=== PATIENT | female | born 1960 | race Native Hawaiian/Other Pacific Islander ===

== ENCOUNTER → 2016-11-07 | Outpatient (CLI) | payer OTHER ==
[2016-11-07 10:21] LABS: CH 29.8; CHCM 33.2; HCT 42.7 % (34.0-46.0); HDW 2.41; HGB 13.9 gm/dL (11.4-16.0); MCH 29.4 pg (25.0-35.0); MCHC 32.6 g/dL (31.0-37.0); MCV 90.3 fL (80.0-100.0); RBC 4.74 m/uL (3.80-5.40); RDW 12.9 % (11.5-15.5); WBC 6.7 k/uL (3.8-10.6)
[2016-11-07 10:48] LABS: ALT 40 U/L (9-52); AST 31 U/L (14-36); Alkaline Phosphatase 101 U/L (38-126); Anion Gap 10 mmol/L; Blood Urea Nitrogen 11 mg/dL (7-17); Calcium 9.6 mg/dL (8.4-10.2); Carbon Dioxide 28 mmol/L (22-30); Chloride 96 mmol/L (98-107); Cholesterol 137 mg/dL (<200); Glucose 244 mg/dL (74-99); HDL Cholesterol 39 mg/dL (40-60); Non-African American GFR(MDRD) >60 (>60 ml/min/1.73 sqM); Potassium 4.6 mmol/L (3.5-5.1); Sodium 134 mmol/L (137-145); Total Bilirubin 0.7 mg/dL (0.2-1.3); Total Protein 7.5 g/dL (6.3-8.2); Triglycerides 156 mg/dL (<150)
[2016-11-07 13:51] LABS: Hemoglobin A1C 11.4 % (4.2-6.1)
[2016-11-07 16:46] LABS: Urine Creatinine 102.3 mg/dL
== END | disposition home or self-care (01) ==
LOC: LABWHC1 09:52
PROVIDERS: ATTEND Internal Medicine
DX: I11.9 Hypertensive heart disease without heart failure (principal); E11.9 Type 2 diabetes mellitus without complications; E78.2 Mixed hyperlipidemia; E03.9 Hypothyroidism, unspecified
CPT/HCPCS: 36415; 80053; 80061; 82043; 82570; 83036; 84439; 84443; 85027

== ENCOUNTER 2017-02-12 07:43 | Emergency (ER) | payer OTHER ==
[2017-02-12 07:56] LABS: Glucose,Whole Blood 446 mg/dL (75-99)
[2017-02-12] MEDS ORDERED: ONDANSETRON 4 MG/2 ML VIAL IVP STA (08:05)
[2017-02-12] MEDS ORDERED: SODIUM CHLORIDE 0.9% 2,000 ML IV STA (08:05)
[2017-02-12 08:33] LABS: Appearance,Urine Clear (Clear); Bilirubin,Urine Negative (Negative); Glucose,Urine (UA) 4+ (Negative); Ketones,Urine Negative (Negative); Leukocyte Esterase,Urine Negative (Negative); Nitrite,Urine Negative (Negative); PH, Urine 5.5 (5.0-8.0); Protein,Urine Negative (Negative); Specific Gravity,Urine 1.024 (1.001-1.035); UA Billing (MACRO vs. MICRO) CHEM; Urobilinogen,Urine <2.0 mg/dL (<2.0)
[2017-02-12 08:41] LABS: VBG PH 7.42 (7.31-7.41)
[2017-02-12] MEDS ORDERED: PANTOPRAZOLE 40 MG/10 ML VIAL IVP STA (08:54)
--- NOTE | 2017-02-12 08:55 | ED ---
General Adult HPI - General Chief complaint: Nausea/Vomiting/Diarrhea Stated complaint: hyperglycemia Time Seen by Provider: 02/12/17 08:05 Source: patient, RN notes reviewed Mode of arrival: ambulatory Limitations: no limitations - History of Present Illness Initial comments: 56-year-old female presents emergency from she complaint of hyperglycemia, abdominal discomfort. Patient states that she's been having difficulty with her insulin because it causes her face to break out. Patient states when she was on Novolin she did not have these issues but states that the log is causing them. She states that she's been trying to deal with her doctor twice and minimal success with the medications. Patient states her blood sugars have been in the 500s over the last 1 week. Patient states that she has not about nausea, vomiting and diarrhea. Patient states that she has pain radiates from her epigastric region always to her anus. Patient states it's like a burning sensation. Patient had no prior GI disorders she's had colonoscopies in the past which showed no acute abnormality. Patient has fever, chills, chest pain or shortness of breath. - Related Data Home Medications Medication Instructions Recorded Confirmed Ibuprofen [Motrin] 800 mg PO Q8HR PRN 11/27/13 02/12/17 Losartan Potassium 100 mg PO DAILY 11/27/13 02/12/17 Levothyroxine Sodium [Synthroid] 25 mcg PO DAILY 06/30/15 02/12/17 Simvastatin [Zocor] 20 mg PO DAILY 02/12/17 02/12/17 oxyCODONE HCL/ACETAMINOPHEN 1 tab PO QID PRN 02/12/17 02/12/17 [Percocet 10-325 mg] Allergies Allergy/AdvReac Type Severity Reaction Status Date / Time venom-honey bee Allergy Severe Dyspnea Verified 02/12/17 08:50 [bee venom (honey bee)] venom-wasp [Wasp Venom] Allergy Severe Dyspnea Verified 02/12/17 08:50 MITA Inhibitors Allergy Unknown Dyspnea Verified 02/12/17 08:50 lactose Allergy Unknown Nausea & Verified 02/12/17 08:50 Vomiting tramadol Allergy Hallucinati Verified 02/12/17 08:50 ons seafood Allergy Unknown Rash/Hives Uncoded 02/12/17 07:51 Review of Systems ROS Statement: Those systems with pertinent positive or pertinent negative responses have been documented in the HPI. ROS Other: All systems not noted in ROS Statement are negative. Past Medical History Past Medical History: Diabetes Mellitus, GERD/Reflux, Hypertension Additional Past Medical History / Comment(s): HX OF DIVERTICULITIS,DEGENERATIVE JOINT DISEASE History of Any Multi-Drug Resistant Organisms: None Reported Past Surgical History: Section Additional Past Surgical History / Comment(s): X2,COLONOSCOPY X2,CHARLEY CARPAL TUNNEL,TRIGGER FINGER SURGERY X2. Past Anesthesia/Blood Transfusion Reactions: Previous Problems w/ Anesthesia, Motion Sickness Additional Past Anesthesia/Blood Transfusion Reaction / Comment(s): PT STATES SHE WAS COMATOSE FOR 5 DAYS AFTER . Past Psychological History: No Psychological Hx Reported Smoking Status: Never smoker Past Alcohol Use History: None Reported Past Drug Use History: None Reported - Past Family History Sister(s) Family Medical History: Cancer Additional Family Medical History / Comment(s): BREAST, UTERINE AND LYMPH NODES Brother(s) Family Medical History: Cancer Additional Family Medical History / Comment(s): BRAIN AND LUNG CA Daughter(s) Family Medical History: Cancer Additional Family Medical History / Comment(s): CERVICAL General Exam Limitations: no limitations General appearance: alert, in no apparent distress Head exam: Present: atraumatic, normocephalic, normal inspection Eye exam: Present: normal appearance, PERRL, EOMI. Absent: scleral icterus, conjunctival injection, periorbital swelling ENT exam: Present: normal exam, mucous membranes moist. Absent: normal oropharynx (Edentulous) Neck exam: Present: normal inspection. Absent: tenderness, meningismus, lymphadenopathy Respiratory exam: Present: normal lung sounds bilaterally. Absent: respiratory distress, wheezes, rales, rhonchi, stridor Cardiovascular Exam: Present: regular rate, normal rhythm, normal heart sounds. Absent: systolic murmur, diastolic murmur, rubs, gallop, clicks GI/Abdominal exam: Present: soft, tenderness (Mild epigastric), normal bowel sounds. Absent: distended, guarding, rebound, rigid Back exam: Absent: CVA tenderness (R), CVA tenderness (L) Skin exam: Present: warm, dry, intact, normal color, rash (Erythematous fine macular papular rash on the face) Course Vital Signs 02/12/17 02/12/17 07:46 10:04 Temperature 97.6 F Pulse Rate 79 78 Respiratory 18 19 Rate Blood Pressure 184/80 155/74 O2 Sat by Pulse 100 100 Oximetry Medical Decision Making - Medical Decision Making 56-year-old female presented emergency for hyperglycemia. Patient states she does feel improved time blood sugar has improved. CT does not show an acute abnormality. Patient will be discharged and advised follow-up with Dr. Mendez today or tomorrow morning to adjust her insulin. - Lab Data Result diagrams: 02/12/17 08:30 02/12/17 08:30 Lab Results 02/12/17 02/12/17 02/12/17 Range/Units 07:54 08:14 08:30 WBC (3.8-10.6) k/uL RBC (3.80-5.40) m/uL Hgb (11.4-16.0) gm/dL Hct (34.0-46.0) % MCV (80.0-100.0) fL MCH (25.0-35.0) pg MCHC (31.0-37.0) g/dL RDW (11.5-15.5) % Plt Count (150-450) k/uL Neutrophils % % Lymphocytes % % Monocytes % % Eosinophils % % Basophils % % Neutrophils # (1.3-7.7) k/uL Lymphocytes # (1.0-4.8) k/uL Monocytes # (0-1.0) k/uL Eosinophils # (0-0.7) k/uL Basophils # (0-0.2) k/uL VBG pH 7.42 H (7.31-7.41) VBG pCO2 38 (37-51) mmHg VBG HCO3 24 (24-28) mmol/L Sodium (137-145) mmol/L Potassium (3.5-5.1) mmol/L Chloride (98-107) mmol/L Carbon Dioxide (22-30) mmol/L Anion Gap mmol/L BUN (7-17) mg/dL Creatinine (0.52-1.04) mg/dL Est GFR (MDRD) Af Amer (>60 ml/min/1.73 sqM) Est GFR (MDRD) Non-Af (>60 ml/min/1.73 sqM) Glucose (74-99) mg/dL POC Glucose (mg/dL) 446 H (75-99) mg/dL POC Glu [employer] Petitpren, Bethany Calcium (8.4-10.2) mg/dL Total Bilirubin (0.2-1.3) mg/dL AST (14-36) U/L ALT (9-52) U/L Alkaline Phosphatase (38-126) U/L Total Protein (6.3-8.2) g/dL Albumin (3.5-5.0) g/dL Amylase (30-110) U/L Lipase (23-300) U/L Urine Color Light Yellow Urine Appearance Clear (Clear) Urine pH 5.5 (5.0-8.0) Ur Specific [place] 1.024 (1.001-1.035) Urine Protein Negative (Negative) Urine Glucose (UA) 4+ H (Negative) Urine Ketones Negative (Negative) Urine Blood Negative (Negative) Urine Nitrite Negative (Negative) Urine Bilirubin Negative (Negative) Urine Urobilinogen <2.0 (<2.0) mg/dL Ur Leukocyte Esterase Negative (Negative) Acetone, Qual (Negative) 02/12/17 02/12/17 02/12/17 Range/Units 08:30 08:30 10:19 WBC 7.1 (3.8-10.6) k/uL RBC 4.83 (3.80-5.40) m/uL Hgb 13.9 (11.4-16.0) gm/dL Hct 42.9 (34.0-46.0) % MCV 88.8 (80.0-100.0) fL MCH 28.8 (25.0-35.0) pg MCHC 32.4 (31.0-37.0) g/dL RDW 14.3 (11.5-15.5) % Plt Count 310 (150-450) k/uL Neutrophils % 71 % Lymphocytes % 21 % Monocytes % 5 % Eosinophils % 2 % Basophils % 1 % Neutrophils # 5.0 (1.3-7.7) k/uL Lymphocytes # 1.5 (1.0-4.8) k/uL Monocytes # 0.3 (0-1.0) k/uL Eosinophils # 0.1 (0-0.7) k/uL Basophils # 0.0 (0-0.2) k/uL VBG pH (7.31-7.41) VBG pCO2 (37-51) mmHg VBG HCO3 (24-28) mmol/L Sodium 138 (137-145) mmol/L Potassium 4.4 (3.5-5.1) mmol/L Chloride 103 (98-107) mmol/L Carbon Dioxide 22 (22-30) mmol/L Anion Gap 13 mmol/L BUN 11 (7-17) mg/dL Creatinine 0.67 (0.52-1.04) mg/dL Est GFR (MDRD) Af Amer >60 (>60 ml/min/1.73 sqM) Est GFR (MDRD) Non-Af >60 (>60 ml/min/1.73 sqM) Glucose 458 H* (74-99) mg/dL POC Glucose (mg/dL) 228 H (75-99) mg/dL POC Glu [employer] Nancy Castillo Calcium 9.5 (8.4-10.2) mg/dL Total Bilirubin 0.2 (0.2-1.3) mg/dL AST 23 (14-36) U/L ALT 39 (9-52) U/L Alkaline Phosphatase 117 (38-126) U/L Total Protein 7.7 (6.3-8.2) g/dL Albumin 3.9 (3.5-5.0) g/dL Amylase 73 (30-110) U/L Lipase 243 (23-300) U/L Urine Color Urine Appearance (Clear) Urine pH (5.0-8.0) Ur Specific [place] (1.001-1.035) Urine Protein (Negative) Urine Glucose (UA) (Negative) Urine Ketones (Negative) Urine Blood (Negative) Urine Nitrite (Negative) Urine Bilirubin (Negative) Urine Urobilinogen (<2.0) mg/dL Ur Leukocyte Esterase (Negative) Acetone, Qual Negative (Negative) Disposition Clinical Impression: Hyperglycemia, Abdominal pain Disposition: HOME SELF-CARE Condition: Stable Instructions: Abdominal Pain (ED) Additional Instructions: Please return to the Emergency Department if symptoms worsen or any other concerns. Follow-up with your PCP today or tomorrow to have your insulin adjusted. Referrals: Blair Mendez MD [Primary Care Provider] - 1-2 days Time of Disposition: 11:18
[2017-02-12] MEDS ORDERED: INSULIN REGULAR 100 UNIT/ML VIAL IV ONE (09:02)
[2017-02-12] MEDS ORDERED: diphenhydrAMINE 50 MG/ML 1 ML VIAL IVP STA (09:39)
[2017-02-12 09:51] LABS: Basophils % (A) 1 %; CH 29.9; CHCM 33.8; Eosinophils # (A) 0.1 k/uL (0-0.7); Eosinophils % (A) 2 %; HCT 42.9 % (34.0-46.0); HDW 2.37; HGB 13.9 gm/dL (11.4-16.0); Luc # (Auto) 0.11; Luc % (Auto) 2; Lymphocytes # (A) 1.5 k/uL (1.0-4.8); Lymphocytes % (A) 21 %; MCH 28.8 pg (25.0-35.0); MCHC 32.4 g/dL (31.0-37.0); MCV 88.8 fL (80.0-100.0); Mean Platelet Volume 7.6; Monocytes # (A) 0.3 k/uL (0-1.0); Monocytes % (A) 5 %; Neutrophils % (A) 71 %; RBC 4.83 m/uL (3.80-5.40); RDW 14.3 % (11.5-15.5); WBC 7.1 k/uL (3.8-10.6); WBC (Perox) 7.12
[2017-02-12 10:02] LABS: ALT 39 U/L (9-52); AST 23 U/L (14-36); Alkaline Phosphatase 117 U/L (38-126); Amylase 73 U/L (30-110); Anion Gap 13 mmol/L; Blood Urea Nitrogen 11 mg/dL (7-17); Calcium 9.5 mg/dL (8.4-10.2); Carbon Dioxide 22 mmol/L (22-30); Chloride 103 mmol/L (98-107); Non-African American GFR(MDRD) >60 (>60 ml/min/1.73 sqM); Potassium 4.4 mmol/L (3.5-5.1); Sodium 138 mmol/L (137-145); Total Bilirubin 0.2 mg/dL (0.2-1.3); Total Protein 7.7 g/dL (6.3-8.2)
[2017-02-12 10:13] LABS: Glucose 458 mg/dL (74-99)
[2017-02-12 10:20] LABS: Glucose,Whole Blood 228 mg/dL (75-99)
[2017-02-12] MEDS ORDERED: RX INFO: IV CONTRAST WAS GIVEN 1 EACH MISC MISCELLANE PRN (10:22)
--- NOTE | 2017-02-12 11:11 | CT ---
EXAMINATION TYPE: CT abdomen pelvis w con DATE OF EXAM: 02/12/2017 HISTORY: ab pain/ rectal pain CT DLP: 1943.10mGycm Automated Exposure Control for Dose Reduction was Utilized. CONTRAST: CT scan of the abdomen and pelvis is performed without oral but with IV Contrast, patient injected wi th 100 mL of Omnipaque 300. COMPARISON: None. FINDINGS: LUNG BASES: No significant abnormality is appreciated. LIVER/GB: No significant abnormality is appreciated. PANCREAS: No significant abnormality is seen. SPLEEN: No significant abnormality is seen. ADRENALS: No significant abnormality is seen. KIDNEYS: No significant abnormality is seen. BOWEL: No suspicious small or large bowel dilatation is present. Normal-appearing appendix is seen f rom cecum. There are some diverticula in the left and proximal sigmoid colon. There is no CT evidence for acute diverticulitis. Perianal fat appears within normal limits near axial image 83. UTERUS/ADNEXA: Few scattered pelvic phleboliths are seen. LYMPH NODES: No greater than 1cm abdominal or pelvic lymph nodes are appreciated. OSSEOUS STRUCTURES: There is moderate multilevel spurring throughout the visualized spine. Facet arth ropathy lower lumbar levels. OTHER: There is small fat-containing umbilical hernia IMPRESSION: No significant acute finding is seen to account for patient's clinical symptoms.
[2017-02-12 11:58] VITALS: BP 156/52; PULSE 777; RESP 20; TEMP 98.9
== END 2017-02-12 11:40 | disposition home or self-care (01) ==
LOC: EC 07:43
DX: E11.65 Type 2 diabetes mellitus with hyperglycemia (principal); R10.13 Epigastric pain; I10 Essential (primary) hypertension; Z88.5 Allergy status to narcotic agent; Z88.8 Allergy status to other drugs, medicaments and biological substances; Z91.011 Allergy to milk products; Z91.013 Allergy to seafood; Z91.030 Bee allergy status; Z79.4 Long term (current) use of insulin; Z79.899 Other long term (current) drug therapy
CPT/HCPCS: 99285; 96374; 96375 ×2; 96361; 36415; 80053; 82150; 82803; 82009; 83690; 85025; 81003; 74177; J1200; J2405; Q9967; C9113

== ENCOUNTER → 2017-08-20 | Outpatient (CLI) | payer OTHER ==
[2017-08-20 11:29] VITALS: BP 112/65; PULSE 68; RESP 18; TEMP 98.3; BMI 44.9
--- NOTE | 2017-08-20 12:22 | P.HPOB ---
History of Present Illness H&P Date: 08/20/17 Chief Complaint: The patient is here for her routine gynecologic exams and mammograms. This is a 57-year-old -Josiah. 2013. Patient is without gynecologic complaints. She denies any postmenopausal bleeding. She has occasional hot flashes. Review of Systems The patient has lost about 9 pounds over the last year. She denies respiratory or cardiac problems. G.I.: she has constipation which she attributes to her newly started insulin. Past Medical History Past Medical History: Diabetes Mellitus (Type II, requiring insulin.), GERD/ Reflux, Hypertension Additional Past Medical History / Comment(s): HX OF DIVERTICULITIS,DEGENERATIVE JOINT DISEASE. Arthritis. 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 She did undergo endometrial ablation 2013 for abnormal bleeding. Last liliana 2016 History of Any Multi-Drug Resistant Organisms: None Reported Past Surgical History: Ablation (Endometrial ablation in 2013), Section (Times 2), Orthopedic Surgery (Arthroscopic knee surgery) Additional Past Surgical History / Comment(s): X2,COLONOSCOPY X2 last one 2013.,CHARLEY CARPAL TUNNEL,TRIGGER FINGER SURGERY X2. Past Anesthesia/Blood Transfusion Reactions: Previous Problems w/ Anesthesia, Motion Sickness Additional Past Anesthesia/Blood Transfusion Reaction / Comment(s): PT STATES SHE WAS COMATOSE FOR 5 DAYS AFTER . 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 - Past Family History Sister(s) Family Medical History: Cancer Additional Family Medical History / Comment(s): BREAST, UTERINE AND LYMPH NODES Brother(s) Family Medical History: Cancer Additional Family Medical History / Comment(s): BRAIN AND LUNG CA Daughter(s) Family Medical History: Cancer Additional Family Medical History / Comment(s): CERVICAL Mother Family Medical History: Cancer, CVA/TIA, Diabetes Mellitus, Hyperlipidemia, Hypertension Additional Family Medical History / Comment(s): Bone cancer, mental disability Father Additional Family Medical History / Comment(s): Father was murdered at 42 yrs old Medications and Allergies Home Medications Medication Instructions Recorded Confirmed Type Losartan Potassium 100 mg PO DAILY 11/27/13 08/20/17 History Simvastatin [Zocor] 20 mg PO DAILY 02/12/17 08/20/17 History oxyCODONE HCL/ACETAMINOPHEN 1 tab PO QID PRN 02/12/17 08/20/17 History [Percocet 10-325 mg] Cholecalciferol (Vitamin D3) 2,000 unit PO 08/20/17 History [Vitamin D3] Insulin Glargine,Hum.rec.anlog 0 unit SQ HS 08/20/17 08/20/17 History [Basaglar Kwikpen U-100] Insulin Lispro [humaLOG Kwikpen] 100 unit SQ AC-BID 08/20/17 08/20/17 History Allergies Allergy/AdvReac Type Severity Reaction Status Date / Time venom-honey bee Allergy Severe Dyspnea Verified 08/20/17 11:47 [bee venom (honey bee)] venom-wasp [Wasp Venom] Allergy Severe Dyspnea Verified 08/20/17 11:47 MITA Inhibitors Allergy Unknown Dyspnea Verified 08/20/17 11:47 lactose Allergy Unknown Nausea & Verified 08/20/17 11:47 Vomiting tramadol Allergy Hallucinati Verified 08/20/17 11:47 ons seafood Allergy Unknown Rash/Hives Uncoded 08/20/17 11:47 Exam - Vital Signs Vital signs: Vital Signs Temp Pulse Resp BP 08/20/17 11:19 98.3 F 68 18 112/65 Intake and Output 08/19/17 08/20/17 08/20/17 22:59 06:59 14:59 Other: Weight 97.522 kg Height 4'10", BMI 44.9. This is a well-developed heavyset female who is alert and oriented times 3 in no acute distress. HEENT: Within normal limits. NECK: Supple without mass or thyromegaly. CHEST AND LUNGS: Clear to auscultation. HEART: Regular rate and rhythm. BREASTS: Are without mass or discharge. AXILLARY EXAM: Negative for adenopathy. BACK: Negative for CVA tenderness. ABDOMEN: Soft, obese, nontender, without palpable masses. PELVIC EXAM: Normal external genitalia with mild atrophy. Cervix and vagina appear normal with minimal atrophy. There is no unusual discharge. There is no evidence of prolapse. The uterus is midposition, nongravid size and nontender. There are no palpable adnexal masses or tenderness. Bimanual examination is somewhat limited secondary to her size. RECTAL EXAM: rectovaginal exam is negative for mass or tenderness and is negative for occult blood. EXTREMITIES: Nontender. IMPRESSION: 1. 57 year old menopausal female with normal gynecologic exam. 2. Previous Pap smear on 03/27/2016 showed ascus and was negative for high- risk HPV. 3. Family history of gynecologic cancer in a sister. This may have been uterine or ovarian. PLAN: 1. Pap smear was performed. 2. Self breast examination was discussed. 3. Screening mammogram will be done today. 4. Osteoporosis prevention was discussed. 5. She will return in one year.
--- NOTE | 2017-08-22 09:02 | MM ---
Reason for exam: screening (asymptomatic). Last mammogram was performed 1 year and 5 months ago. History: Family history of breast cancer in sister at age 48. Physical Findings: A clinical breast exam by your physician is recommended on an annual basis and results should be correlated with mammographic findings. MG Screening Mammo w CAD Bilateral CC, MLO, and XCCL view(s) were taken. Prior study comparison: March 27, 2016, bilateral MG screening mammo w CAD. December 01, 2014, bilateral MG screening mammo w CAD. The breast tissue is almost entirely fat. No significant changes when compared with prior studies. ASSESSMENT: Benign, BI-RAD 2 RECOMMENDATION: Routine screening mammogram of both breasts in 1 year.
== END | disposition home or self-care (01) ==
LOC: WWCWWP 11:14
PROVIDERS: ATTEND Obstetrics & Gynecology
DX: Z12.31 Encounter for screening mammogram for malignant neoplasm of breast (principal)
CPT/HCPCS: 77067

== ENCOUNTER 2017-09-08 02:38 | Emergency (ER) | payer OTHER ==
[2017-09-08 02:47] VITALS: PULSE 109
[2017-09-08] MEDS ORDERED: SODIUM CHLORIDE 0.9% 1,000 ML IV ONE (03:51)
[2017-09-08] MEDS ORDERED: ONDANSETRON 4 MG/2 ML VIAL IVP STA (03:52)
[2017-09-08] MEDS ORDERED: MORPHINE SULFATE 4MG/4ML SYRG IVP ONE (03:53)
[2017-09-08] MEDS ORDERED: SODIUM CHLORIDE 0.9% 1,000 ML IV SCH (04:00)
[2017-09-08 04:06] LABS: Basophils % (A) 0 %; Eosinophils # (A) 0.2 k/uL (0-0.7); Eosinophils % (A) 2 %; HCT 42.9 % (34.0-46.0); Lymphocytes # (A) 0.8 k/uL (1.0-4.8); Lymphocytes % (A) 9 %; MCH 28.3 pg (25.0-35.0); MCHC 32.7 g/dL (31.0-37.0); MCV 86.6 fL (80.0-100.0); Mean Platelet Volume 7.2; Monocytes # (A) 0.3 k/uL (0-1.0); Monocytes % (A) 3 %; Neutrophils # (A) 7.5 k/uL (1.3-7.7); Neutrophils % (A) 84 %; Platelet Count 281 k/uL (150-450); RBC 4.96 m/uL (3.80-5.40); WBC 8.9 k/uL (3.8-10.6)
[2017-09-08 04:07] LABS: Appearance,Urine Clear (Clear); Bilirubin,Urine Negative (Negative); Blood,Urine Negative (Negative); Color,Urine Yellow; Glucose,Urine (UA) Negative (Negative); Ketones,Urine Negative (Negative); Leukocyte Esterase,Urine Negative (Negative); Nitrite,Urine Negative (Negative); PH, Urine 6.5 (5.0-8.0); Protein,Urine Negative (Negative); Specific Gravity,Urine 1.013 (1.001-1.035); Urobilinogen,Urine <2.0 mg/dL (<2.0)
[2017-09-08 04:15] LABS: ALT 30 U/L (9-52); AST 33 U/L (14-36); Albumin 4.2 g/dL (3.5-5.0); Alkaline Phosphatase 79 U/L (38-126); Amylase 76 U/L (30-110); Anion Gap 16 mmol/L; Blood Urea Nitrogen 11 mg/dL (7-17); Calcium 9.7 mg/dL (8.4-10.2); Carbon Dioxide 23 mmol/L (22-30); Chloride 99 mmol/L (98-107); Glucose 146 mg/dL (74-99); Lipase 50 U/L (23-300); Potassium 4.4 mmol/L (3.5-5.1); Sodium 138 mmol/L (137-145); Total Bilirubin 0.6 mg/dL (0.2-1.3); Total Protein 7.6 g/dL (6.3-8.2)
[2017-09-08 04:21] LABS: D-Dimer 0.59 mg/L FEU (<0.60); Partial Thromboplastin Time 23.3 sec (22.0-30.0); Prothrombin Time 10.1 sec (9.0-12.0)
[2017-09-08 04:28] LABS: Creatine Kinase 57 U/L (30-135)
[2017-09-08 04:41] LABS: Creatine Kinase MB <0.2 ng/mL (0.0-2.4); Troponin I <0.012 ng/mL (0.000-0.034)
--- NOTE | 2017-09-08 04:47 | ED ---
Nausea/Vomiting/Diarrhea HPI <Gallo Oliva - Last Filed: 09/08/17 07:09> - General Source: patient, RN notes reviewed, old records reviewed Mode of arrival: wheelchair Limitations: no limitations <Sheree Burdenily - Last Filed: 09/08/17 14:52> - General Chief complaint: Nausea/Vomiting/Diarrhea Stated complaint: Nausea Time Seen by Provider: 09/08/17 02:53 - History of Present Illness Initial comments: Patient is a 57-year-old female present emergency Department chief complaint of vomiting and abdominal pain. 4:30 this afternoon. Patient states she's also some urinary frequency. She states the pain occasionally will radiate up towards her chest. Patient states that she's been treated for rosacea with Flagyl. She also was recently started on metformin. She complains of diarrhea.Patient denies any recent fever, chills, shortness of breath, chest pain, back pain, abdominal pain, nausea vomiting, numbness or tingling, dysuria or hematuria, constipation or diarrhea, headaches or visual changes, or any other current symptoms (Lian Burden) - Related Data Home Medications Medication Instructions Recorded Confirmed Losartan Potassium 100 mg PO DAILY 11/27/13 08/20/17 Simvastatin [Zocor] 20 mg PO DAILY 02/12/17 08/20/17 oxyCODONE HCL/ACETAMINOPHEN 1 tab PO QID PRN 02/12/17 08/20/17 [Percocet 10-325 mg] Cholecalciferol (Vitamin D3) 2,000 unit PO 08/20/17 [Vitamin D3] Insulin Glargine,Hum.rec.anlog 0 unit SQ HS 08/20/17 08/20/17 [Basaglar Kwikpen U-100] Insulin Lispro [humaLOG Kwikpen] 100 unit SQ AC-BID 08/20/17 08/20/17 Previous Rx's Medication Instructions Recorded Dicyclomine [Bentyl] 20 mg PO QID #15 tablet 09/08/17 Allergies Allergy/AdvReac Type Severity Reaction Status Date / Time venom-honey bee Allergy Severe Dyspnea Verified 08/20/17 11:47 [bee venom (honey bee)] venom-wasp [Wasp Venom] Allergy Severe Dyspnea Verified 08/20/17 11:47 MITA Inhibitors Allergy Unknown Dyspnea Verified 08/20/17 11:47 lactose Allergy Unknown Nausea & Verified 08/20/17 11:47 Vomiting tramadol Allergy Hallucinati Verified 08/20/17 11:47 ons seafood Allergy Unknown Rash/Hives Uncoded 08/20/17 11:47 Review of Systems ROS Other: All systems not noted in ROS Statement are negative. <Gallo Oliva - Last Filed: 09/08/17 07:09> ROS Other: All systems not noted in ROS Statement are negative. <Lian Burden - Last Filed: 09/08/17 14:52> ROS Statement: Those systems with pertinent positive or pertinent negative responses have been documented in the HPI. Past Medical History Past Medical History: Diabetes Mellitus, GERD/Reflux, Hypertension Additional Past Medical History / Comment(s): HX OF DIVERTICULITIS,DEGENERATIVE JOINT DISEASE. Arthritis. She did undergo endometrial ablation 2013 for abnormal bleeding History of Any Multi-Drug Resistant Organisms: None Reported Past Surgical History: Ablation, Section, Orthopedic Surgery Additional Past Surgical History / Comment(s): X2,COLONOSCOPY X2 last one 2013.,CHARLEY CARPAL TUNNEL,TRIGGER FINGER SURGERY X2. Past Anesthesia/Blood Transfusion Reactions: Previous Problems w/ Anesthesia, Motion Sickness Additional Past Anesthesia/Blood Transfusion Reaction / Comment(s): PT STATES SHE WAS COMATOSE FOR 5 DAYS AFTER . Past Psychological History: No Psychological Hx Reported Smoking Status: Never smoker Past Alcohol Use History: None Reported Past Drug Use History: None Reported - Past Family History Sister(s) Family Medical History: Cancer Additional Family Medical History / Comment(s): BREAST, UTERINE AND LYMPH NODES Brother(s) Family Medical History: Cancer Additional Family Medical History / Comment(s): BRAIN AND LUNG CA Daughter(s) Family Medical History: Cancer Additional Family Medical History / Comment(s): CERVICAL Mother Family Medical History: Cancer, CVA/TIA, Diabetes Mellitus, Hyperlipidemia, Hypertension Additional Family Medical History / Comment(s): Bone cancer, mental disability Father Additional Family Medical History / Comment(s): Father was murdered at 42 yrs old <Lian Burden - Last Filed: 09/08/17 14:52> General Exam Limitations: no limitations General appearance: alert, in no apparent distress Head exam: Present: atraumatic, normocephalic, normal inspection Eye exam: Present: normal appearance, PERRL, EOMI. Absent: scleral icterus, conjunctival injection, periorbital swelling ENT exam: Present: normal exam, mucous membranes moist Neck exam: Present: normal inspection. Absent: tenderness, meningismus, lymphadenopathy Respiratory exam: Present: normal lung sounds bilaterally. Absent: respiratory distress, wheezes, rales, rhonchi, stridor Cardiovascular Exam: Present: regular rate, normal rhythm, normal heart sounds. Absent: systolic murmur, diastolic murmur, rubs, gallop, clicks GI/Abdominal exam: Present: soft, tenderness (LLQ pain), normal bowel sounds. Absent: distended, guarding, rebound, rigid Extremities exam: Present: normal inspection, full ROM, normal capillary refill. Absent: tenderness, pedal edema, joint swelling, calf tenderness Back exam: Present: normal inspection Neurological exam: Present: alert, oriented X3, CN II-XII intact Psychiatric exam: Present: normal affect, normal mood Skin exam: Present: warm, dry, intact, normal color. Absent: rash <Lian Burden - Last Filed: 09/08/17 14:52> Vital Signs 09/08/17 09/08/17 02:41 07:03 Temperature 99.2 F 99.3 F Pulse Rate 109 H 109 H Respiratory 18 20 Rate Blood Pressure 131/71 143/78 O2 Sat by Pulse 99 96 Oximetry Medical Decision Making - Lab Data Result diagrams: 09/08/17 03:35 09/08/17 03:35 <Gallo Oliva - Last Filed: 09/08/17 07:09> - Lab Data Result diagrams: 09/08/17 03:35 09/08/17 03:35 - Radiology Data Radiology results: report reviewed <Lian Burden - Last Filed: 09/08/17 14:52> - Medical Decision Making 57 year old female, with nausea, diarrhea, and abdominal pain for one day. She also complains of chest pain for one week. She was given IV fluids labs obtained , labs were reviewed adn un remarkable. Patient has LLQ tenderness, continues to be tender on exam. CT preformed. Patient will be discharged from Dr. Oliva, althea CT results. Patient case address Dr. Jauregui 5:39 AM. (Lian Burden) - Lab Data Lab Results 09/08/17 09/08/1718 Range/Units 03:35 03:35 03:35 WBC 8.9 (3.8-10.6) k/uL RBC 4.96 (3.80-5.40) m/uL Hgb 14.0 (11.4-16.0) gm/dL Hct 42.9 (34.0-46.0) % MCV 86.6 (80.0-100.0) fL MCH 28.3 (25.0-35.0) pg MCHC 32.7 (31.0-37.0) g/dL RDW 13.0 (11.5-15.5) % Plt Count 281 (150-450) k/uL Neutrophils % 84 % Lymphocytes % 9 % Monocytes % 3 % Eosinophils % 2 % Basophils % 0 % Neutrophils # 7.5 (1.3-7.7) k/uL Lymphocytes # 0.8 L (1.0-4.8) k/uL Monocytes # 0.3 (0-1.0) k/uL Eosinophils # 0.2 (0-0.7) k/uL Basophils # 0.0 (0-0.2) k/uL PT (9.0-12.0) sec INR (<1.2) APTT (22.0-30.0) sec D-Dimer (<0.60) mg/L FEU Sodium 138 (137-145) mmol/L Potassium 4.4 (3.5-5.1) mmol/L Chloride 99 (98-107) mmol/L Carbon Dioxide 23 (22-30) mmol/L Anion Gap 16 mmol/L BUN 11 (7-17) mg/dL Creatinine 0.70 (0.52-1.04) mg/dL Est GFR (CKD-EPI)AfAm >90 (>60 ml/min/1.73 sqM) Est GFR (CKD-EPI)NonAf >90 (>60 ml/min/1.73 sqM) Glucose 146 H (74-99) mg/dL Calcium 9.7 (8.4-10.2) mg/dL Total Bilirubin 0.6 (0.2-1.3) mg/dL AST 33 (14-36) U/L ALT 30 (9-52) U/L Alkaline Phosphatase 79 (38-126) U/L Total Creatine Kinase 57 (30-135) U/L CK-MB (CK-2) <0.2 (0.0-2.4) ng/mL CK-MB (CK-2) Rel Index Troponin I <0.012 (0.000-0.034) ng/mL Total Protein 7.6 (6.3-8.2) g/dL Albumin 4.2 (3.5-5.0) g/dL Amylase 76 (30-110) U/L Lipase 50 (23-300) U/L Urine Color Urine Appearance (Clear) Urine pH (5.0-8.0) Ur Specific [place] (1.001-1.035) Urine Protein (Negative) Urine Glucose (UA) (Negative) Urine Ketones (Negative) Urine Blood (Negative) Urine Nitrite (Negative) Urine Bilirubin (Negative) Urine Urobilinogen (<2.0) mg/dL Ur Leukocyte Esterase (Negative) 09/08/17 09/08/17 Range/Units 03:35 03:35 WBC (3.8-10.6) k/uL RBC (3.80-5.40) m/uL Hgb (11.4-16.0) gm/dL Hct (34.0-46.0) % MCV (80.0-100.0) fL MCH (25.0-35.0) pg MCHC (31.0-37.0) g/dL RDW (11.5-15.5) % Plt Count (150-450) k/uL Neutrophils % % Lymphocytes % % Monocytes % % Eosinophils % % Basophils % % Neutrophils # (1.3-7.7) k/uL Lymphocytes # (1.0-4.8) k/uL Monocytes # (0-1.0) k/uL Eosinophils # (0-0.7) k/uL Basophils # (0-0.2) k/uL PT 10.1 (9.0-12.0) sec INR 1.0 (<1.2) APTT 23.3 (22.0-30.0) sec D-Dimer 0.59 (<0.60) mg/L FEU Sodium (137-145) mmol/L Potassium (3.5-5.1) mmol/L Chloride (98-107) mmol/L Carbon Dioxide (22-30) mmol/L Anion Gap mmol/L BUN (7-17) mg/dL Creatinine (0.52-1.04) mg/dL Est GFR (CKD-EPI)AfAm (>60 ml/min/1.73 sqM) Est GFR (CKD-EPI)NonAf (>60 ml/min/1.73 sqM) Glucose (74-99) mg/dL Calcium (8.4-10.2) mg/dL Total Bilirubin (0.2-1.3) mg/dL AST (14-36) U/L ALT (9-52) U/L Alkaline Phosphatase (38-126) U/L Total Creatine Kinase (30-135) U/L CK-MB (CK-2) (0.0-2.4) ng/mL CK-MB (CK-2) Rel Index Troponin I (0.000-0.034) ng/mL Total Protein (6.3-8.2) g/dL Albumin (3.5-5.0) g/dL Amylase (30-110) U/L Lipase (23-300) U/L Urine Color Yellow Urine Appearance Clear (Clear) Urine pH 6.5 (5.0-8.0) Ur Specific [place] 1.013 (1.001-1.035) Urine Protein Negative (Negative) Urine Glucose (UA) Negative (Negative) Urine Ketones Negative (Negative) Urine Blood Negative (Negative) Urine Nitrite Negative (Negative) Urine Bilirubin Negative (Negative) Urine Urobilinogen <2.0 (<2.0) mg/dL Ur Leukocyte Esterase Negative (Negative) 09/08/17 04:46 EKG shows recession cannot rule out anterior infarct. Age-indeterminate. Ventricular rate of 95 bpm. NM interval 150 ms. QRS duration 76 ms. QT QTc is 07/24/1939/437. (Lian Burden) - Radiology Data CT shows evidence of umbilical hernia, degenerative changes in spine. No acute inflammatory process. CXR was reivewed and normal. (Lian Burden) Disposition <Gallo Oliva - Last Filed: 09/08/17 07:09> Is patient prescribed a controlled substance at d/c from ED?: No If prescribed controlled substance>3 days was MAPS reviewed?: No When asked, does pt state using other controlled substances?: No <Lian Burden - Last Filed: 09/08/17 14:52> Clinical Impression: Abdominal pain Disposition: HOME SELF-CARE Condition: Good Instructions: Abdominal Pain (ED) Prescriptions: Dicyclomine [Bentyl] 20 mg PO QID #15 tablet Referrals: Blair Mendez MD [Primary Care Provider] - 1-2 days
--- NOTE | 2017-09-08 05:18 | XR ---
EXAM: XR Chest, 2 Views CLINICAL HISTORY: Pain TECHNIQUE: Frontal and lateral views of the chest. COMPARISON: 05/16/16 FINDINGS: Lungs: Unremarkable. No consolidation. Pleural space: Unremarkable. No pneumothorax. Heart: Unremarkable. No cardiomegaly. Mediastinum: Unremarkable. Bones/joints: Unremarkable. IMPRESSION: Unremarkable 2 views of the chest, no significant change from the prior study
[2017-09-08] MEDS ORDERED: RX INFO: IV CONTRAST WAS GIVEN 1 EACH MISC MISCELLANE PRN ×2 (05:22→05:48)
--- NOTE | 2017-09-08 05:22 | XR ---
EXAM: XR Abdomen, 1 View CLINICAL HISTORY: Pain TECHNIQUE: Frontal supine view of the abdomen/pelvis. COMPARISON: May 25, 2014 FINDINGS: Gastrointestinal tract: Unremarkable. No dilation. Bones/joints: Unremarkable. Multiple phleboliths are noted in the pelvis. IMPRESSION: Unremarkable single view the abdomen. No significant change compared to prior study
--- NOTE | 2017-09-08 06:57 | CT ---
EXAMINATION TYPE: CT abdomen and pelvis wo con DATE OF EXAM: 09/08/2017 COMPARISON: Previous study dated 02/12/2017 HISTORY: Left-sided abdominal pain CT DLP: 1765.30 mGycm Automated exposure control for dose reduction was used. TECHNIQUE: Helical acquisition of images was performed through the abdomen and pelvis was obtained w ithout intravenous or oral contrast.. FINDINGS: Visualized portions of the lungs are clear. There is no pleural or pericardial fluid. The h eart is not enlarged. Within the abdomen, there is elevation of the right hemidiaphragm. The liver, spleen and gallbladder appear normal. Both adrenal glands appear normal. There is no evidence of hydronephrosis or nephrolithiasis. The pancreas appears unremarkable. There is no significant retroperitoneal adenopathy. The bladder is unremarkable. The uterus is unremarkable. The ovaries are not visualized with certainty. There is no significant diverticular change and there is no radiographic evidence of diverticulitis. The appendix is normal. Small bowel loops are normal. There is no free fluid and no free air. There is a periumbilical hernia containing fat only. The mouth measures 2.9 cm. There is degenerative disc disease, facet arthropathy and hypertrophic spondylosis within the spine. IMPRESSION: 1. NO ACUTE INFLAMMATORY CHANGE. 2. PERIUMBILICAL HERNIA CONTAINING FAT ONLY WITH A MOUTH MEASURING 2.9 CM. 3. DEGENERATIVE CHANGES WITHIN THE SPINE.
[2017-09-08 07:06] VITALS: BP 143/78; RESP 20; TEMP 99.3
== END 2017-09-08 07:30 | disposition home or self-care (01) ==
LOC: EC 02:38 → SUPCPDRO 02:38 → EC 07:30
DX: R10.32 Left lower quadrant pain (principal); R07.9 Chest pain, unspecified; R11.2 Nausea with vomiting, unspecified; R19.7 Diarrhea, unspecified; R35.0 Frequency of micturition; E11.9 Type 2 diabetes mellitus without complications; I10 Essential (primary) hypertension; K21.9 Gastro-esophageal reflux disease without esophagitis; Z79.899 Other long term (current) drug therapy; Z79.4 Long term (current) use of insulin; Z91.030 Bee allergy status; Z88.8 Allergy status to other drugs, medicaments and biological substances; Z88.6 Allergy status to analgesic agent; Z91.011 Allergy to milk products; Z91.038 Other insect allergy status; Z91.013 Allergy to seafood
CPT/HCPCS: 36415; 93005; 85379; 80053; 82150; 82550; 82553; 83690; 84484; 85025; 85610; 85730; 81003; 71046; 74018; 74150; 99285; 96374; 96375; 96361 ×3; J2405; J2270

== ENCOUNTER 2019-01-11 14:02 | Emergency (ER) | payer OTHER ==
[2019-01-11 14:21] VITALS: BP 169/95; PULSE 95; RESP 16; TEMP 98
--- NOTE | 2019-01-11 15:51 | XR ---
EXAMINATION TYPE: XR Hip RT and AP Pelvis DATE OF EXAM: 01/11/2019 COMPARISON: 03/22/2012 HISTORY: Pain TECHNIQUE: A single AP view of the pelvis is obtained. Two views of the right hip are obtained. FINDINGS: The pelvic ring is intact. Sacroiliac joints appear intact. Proximal right femur and hip taj int appear intact. There is no sign of hip dysplasia. IMPRESSION: No acute abnormality of the pelvis and right hip. No change.
--- NOTE | 2019-01-11 15:59 | ED ---
General Adult HPI - General Chief complaint: Abdominal Pain Stated complaint: Right Hip Pain Time Seen by Provider: 01/11/19 14:24 Source: patient, RN notes reviewed, old records reviewed Mode of arrival: wheelchair Limitations: no limitations - History of Present Illness Initial comments: 58 year old female patient, no pertinent past medical history presents ED chief complaint of right hip pain. Patient reports that approximately one month ago she strained her right groin region. Patient states that this was improving. Patient states that today when she was in bed she rolled over and felt a pop in the anterior aspect of her right groin/hip region. Patient reports this is currently causing her pain. Patient reports that she is still ambulatory. Patient denies any other complaints at this time. Systemic: Pt denies fatigue, fever/chills, rash. Pt denies weakness, night sweats, weight loss. Neuro: Pt denies headache, visual disturbances, syncope or pre-syncope. HEENT: Pt denies ocular discharge or irritation, otalgia, rhinorrhea, pharyngitis or notable lymphadenopathy. Cardiopulmonary: Pt denies chest pain, SOB, heart palpitations, dyspnea on exertion. Abdominal/GI: Pt denies abdominal pain, n/v/d. : Pt denies dysuria, burning w/ urination, frequency/urgency. Denies new onset urinary or bowel incontinence. MSK: Pt denies myalgia, loss of strength or function in extremities. Neuro: Pt denies new onset weakness, paresthesias. - Related Data Home Medications Medication Instructions Recorded Confirmed Losartan Potassium 100 mg PO DAILY 11/27/13 08/20/17 Simvastatin [Zocor] 20 mg PO DAILY 02/12/17 08/20/17 oxyCODONE HCL/ACETAMINOPHEN 1 tab PO QID PRN 02/12/17 08/20/17 [Percocet 10-325 mg] Cholecalciferol (Vitamin D3) 2,000 unit PO 08/20/17 [Vitamin D3] Insulin Glargine,Hum.rec.anlog 0 unit SQ HS 08/20/17 08/20/17 [Basaglar Kwikpen U-100] Insulin Lispro [humaLOG Kwikpen] 100 unit SQ AC-BID 08/20/17 08/20/17 Previous Rx's Medication Instructions Recorded Dicyclomine [Bentyl] 20 mg PO QID #15 tablet 09/08/17 Allergies Allergy/AdvReac Type Severity Reaction Status Date / Time venom-honey bee Allergy Severe Dyspnea Verified 01/11/19 14:21 [bee venom (honey bee)] venom-wasp [Wasp Venom] Allergy Severe Dyspnea Verified 01/11/19 14:21 MITA Inhibitors Allergy Unknown Dyspnea Verified 01/11/19 14:21 lactose Allergy Unknown Nausea & Verified 01/11/19 14:21 Vomiting tramadol Allergy Hallucinati Verified 01/11/19 14:21 ons seafood Allergy Unknown Rash/Hives Uncoded 01/11/19 14:21 Review of Systems ROS Statement: Those systems with pertinent positive or pertinent negative responses have been documented in the HPI. ROS Other: All systems not noted in ROS Statement are negative. Past Medical History Past Medical History: Diabetes Mellitus, GERD/Reflux, Hypertension Additional Past Medical History / Comment(s): HX OF DIVERTICULITIS,DEGENERATIVE JOINT DISEASE. Arthritis. She did undergo endometrial ablation 2013 for abnormal bleeding History of Any Multi-Drug Resistant Organisms: None Reported Past Surgical History: Ablation, Section, Orthopedic Surgery Additional Past Surgical History / Comment(s): X2,COLONOSCOPY X2 last one 2013.,CHARLEY CARPAL TUNNEL,TRIGGER FINGER SURGERY X2. Past Anesthesia/Blood Transfusion Reactions: Previous Problems w/ Anesthesia, Motion Sickness Additional Past Anesthesia/Blood Transfusion Reaction / Comment(s): PT STATES SHE WAS COMATOSE FOR 5 DAYS AFTER . Past Psychological History: No Psychological Hx Reported Smoking Status: Never smoker Past Alcohol Use History: None Reported Past Drug Use History: None Reported - Past Family History Sister(s) Family Medical History: Cancer Additional Family Medical History / Comment(s): BREAST, UTERINE AND LYMPH NODES Brother(s) Family Medical History: Cancer Additional Family Medical History / Comment(s): BRAIN AND LUNG CA Daughter(s) Family Medical History: Cancer Additional Family Medical History / Comment(s): CERVICAL Mother Family Medical History: Cancer, CVA/TIA, Diabetes Mellitus, Hyperlipidemia, Hypertension Additional Family Medical History / Comment(s): Bone cancer, mental disability Father Additional Family Medical History / Comment(s): Father was murdered at 42 yrs old General Exam - General Exam Comments Initial Comments: Constitutional: NAD, AOX3, Pt has pleasant affect. HEENT: NC/AT, trachea midline, neck supple, no lymphadenopathy. Posterior pharynx non erythematous, without exudates. External ears appear normal, without discharge. Mucous membranes moist. Eyes PERRLA, EOM intact. There is no scleral icterus. No pallor noted. Cardiopulmonary: RRR, no murmurs, rubs or gallops, no JVD noted. Lungs CTAB in anterior and posterior bautista. No peripheral edema. Abdominal exam: Abdomen soft and non-distended. Abdomen non-tender to palpation in all 4 quadrants. Bowel sounds active in LLQ. No hepatosplenomegaly. No ecchymosis Neuro: CN II-XII grossly intact. No nuchal rigidity. No raccon eyes, no doshi sign, no hemotympanum. No cervical spinal tenderness. MSK: Full active range of motion of hip, mild tenderness with abduction of right hip. Ambulatory without difficulty. No skin changes. No posterior calf tenderness bilaterally, homans sign negative bilaterally. Posterior tibialis and radial pulse +2 bilaterally. Sensation intact in upper and lower extremities. Full active ROM in upper and lower extremities, 5/5 stregnth. Limitations: no limitations Course Vital Signs 01/11/19 14:19 Temperature 98 F Pulse Rate 95 Respiratory 16 Rate Blood Pressure 169/95 O2 Sat by Pulse 98 Oximetry Medical Decision Making - Medical Decision Making 58 year old female patient, no pertinent past medical history presents ED chief complaint of right hip pain. Patient reports that approximately one month ago she strained her right groin region. Patient states that this was improving. Patient states that today when she was in bed she rolled over and felt a pop in the anterior aspect of her right groin/hip region. Patient reports this is currently causing her pain. Patient reports that she is still ambulatory. Patient denies any other complaints at this time. Pt VSS, afebrile. Physical exam displayed: Full active range of motion of hip, mild tenderness with abduction of right hip. Ambulatory without difficulty. No skin changes. Plain film of hip did not display acute process. Patient was discharged with orthopedic follow-up, primary care follow-up. Patient return here if condition worsens. Case discussed with Dr. Varghese. Disposition Clinical Impression: Strain of groin Disposition: HOME SELF-CARE Condition: Stable Instructions (If sedation given, give patient instructions): Musculoskeletal Pain (ED) Additional Instructions: Patient to adhere to previously discussed treatment plan and will take medication(s) as directed. Patient to follow up with PCP in 1-2 days. Patient to return to ED if symptoms do not improve. Follow-up with primary care provider and orthopedic consult. Return to ER if condition worsens. Is patient prescribed a controlled substance at d/c from ED?: No Referrals: Blair Mendez MD [Primary Care Provider] - 1-2 days Will Fischer MD [Medical Doctor] - 1-2 days
== END 2019-01-11 16:35 | disposition home or self-care (01) ==
LOC: EC 14:02
DX: S39.011A Strain of muscle, fascia and tendon of abdomen, initial encounter (principal); E11.9 Type 2 diabetes mellitus without complications; I10 Essential (primary) hypertension; M19.90 Unspecified osteoarthritis, unspecified site; Z87.19 Personal history of other diseases of the digestive system; Z79.891 Long term (current) use of opiate analgesic; Z79.4 Long term (current) use of insulin; Z79.899 Other long term (current) drug therapy; Z91.030 Bee allergy status; Z91.038 Other insect allergy status; Z88.8 Allergy status to other drugs, medicaments and biological substances; Z91.011 Allergy to milk products; Z88.5 Allergy status to narcotic agent; Z91.013 Allergy to seafood
CPT/HCPCS: 73502; 99284

== ENCOUNTER → 2019-05-29 | Outpatient (CLI) | payer OTHER ==
[~2019-05-29] MED LIST: DOBUTamine DRIP for NUC MED 500 MG in DEXTROSE/WATER 1 250ML.BAG IV ONE
--- NOTE | 2019-05-29 12:36 | ECHOS ---
STRESS ECHOCARDIOGRAM DATE OF SERVICE: 05/29/2019 INDICATIONS: Chest pain. MEDICATIONS: BASELINE HEART RATE: 83 BASELINE BLOOD PRESSURE: 134/85 MAXIMUM HEART RATE: 143 MAXIMUM BLOOD PRESSURE: 186/83 85% MPHR: 139 100% MPHR: 163 METS: MAXIMUM STAGE REACHED: TOTAL EXERCISE TIME: CLINICAL INFORMATION: A dobutamine echocardiographic study was performed. Peak heart rate of 143 was achieved. Maximum blood pressure of 186/83 mmHg was noted. Resting EKG shows normal sinus rhythm with normal SD interval and QRS duration and normal ST-T waves. During dobutamine infusion, J-point depression with upsloping ST segments were noted. Occasional PACs and PVCs were noted. The baseline echocardiographic images reveals normal left ventricular chamber size with normal left ventricular systolic function. At the peak dose of dobutamine infusion normal increase in the wall thickness and contractility is noted. FINAL IMPRESSION: 1. This dobutamine stress echocardiographic study is negative for stress-induced ischemia. 2. EKG portion of the stress test was not suggestive of ischemia. 3. Occasional PVCs and PACs were noted. MMODL / IJN: [id number] /
== END | disposition home or self-care (01) ==
LOC: RADNMMAIN 09:52
PROVIDERS: ATTEND Family Medicine
DX: I49.3 Ventricular premature depolarization (principal); Z88.8 Allergy status to other drugs, medicaments and biological substances; Z88.5 Allergy status to narcotic agent
CPT/HCPCS: C8930; J1250; Q9950; 93351

== ENCOUNTER → 2023-06-26 | Outpatient (CLI) | payer OTHER ==
--- NOTE | 2023-06-27 08:29 | MM ---
Reason for Exam: Screening (asymptomatic). Last mammogram was performed 5 year(s) and 10 month(s) ago. Patient History: Menarche at age 10. First Full-Term at age 16. Postmenopausal. Sister had breast cancer, age 48. Risk Values: Macarena 5 year model risk: 2.0%. NCI Lifetime model risk: 9.9%. Prior Study Comparison: 12/01/2014 Bilateral Screening Mammogram, [facility]. 03/27/2016 Bilateral Screening Mammogram, [facility]. 08/20/2017 Bilateral Screening Mammogram, [facility]. Tissue Density: There are scattered fibroglandular densities. Findings: Analyzed By CAD. There is no suspicious group of microcalcifications or new suspicious mass in either breast. Benign-appearing calcifications. Chronic nodularity stable. Overall Assessment: Benign, BI-RAD 2 Management: Screening Mammogram of both breasts in 1 year. . Patient should continue monthly self-breast exams. A clinical breast exam by your physician is recommended on an annual basis. This exam should not preclude additional follow-up of suspicious palpable abnormalities. Note on Macarena scores and lifetime risk: 1. A Macarena score greater than 3% is considered moderate risk. If this is the case, consider specialist referral to assess eligibility for a risk reducing agent. 2. If overall lifetime risk for the development of breast cancer is 20% or higher, the patient may qualify for future screening with alternating mammogram and breast MRI. Electronically signed and approved by: Andrea Muñoz M.D. Radiologis
== END | disposition home or self-care (01) ==
LOC: RADMAMWWP 12:02
PROVIDERS: ATTEND Family Medicine
DX: Z12.31 Encounter for screening mammogram for malignant neoplasm of breast (principal); Z78.0 Asymptomatic menopausal state; Z80.3 Family history of malignant neoplasm of breast
CPT/HCPCS: 77063; 77067

== ENCOUNTER → 2023-07-02 | Outpatient (CLI) | payer OTHER ==
[2023-07-02 13:05] VITALS: BP 162/90; PULSE 92; RESP 17; TEMP 97.9
--- NOTE | 2023-07-02 13:50 | P.HPOB ---
History of Present Illness H&P Date: 07/02/23 Chief Complaint: Patient is here for her routine gynecologic exam. This is a 63-year-old with an LMP of 2014. The patient is here to reestablish with the office. Her last pelvic exam was in 2018. The patient states she has occasional sharp pelvic pains and states it feels like she has to have a bowel movement. She denies any postmenopausal bleeding and is otherwise without gynecologic complaints. Last Pap smear on 08/19/17 was negative. Prior to that she had a Pap smear on 03/27/2016 which showed ASCUS and negative high- risk HPV testing. Review of Systems She has lost some weight since she was last year 5 years ago. She denies respiratory or GI problems. Cardiac occasional heart racing for no apparent reason. She has discussed this with her PCP. Past Medical History Past Medical History: Diabetes Mellitus, GERD/Reflux, Hypertension Additional Past Medical History / Comment(s): Type 2 diabetes requiring insulin. HX OF DIVERTICULITIS,DEGENERATIVE JOINT DISEASE. Arthritis. 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 History of Any Multi-Drug Resistant Organisms: None Reported Past Surgical History: Section, Orthopedic Surgery, Uterine Ablation Additional Past Surgical History / Comment(s): X2,COLONOSCOPY X2 last one 2017(next after 5 years).,CHARLEY CARPAL TUNNEL,TRIGGER FINGER SURGERY X2. Endometrial ablation in 2013. Past Anesthesia/Blood Transfusion Reactions: Previous Problems w/ Anesthesia, Motion Sickness Additional Past Anesthesia/Blood Transfusion Reaction / Comment(s): PT STATES SHE WAS COMATOSE FOR 5 DAYS AFTER . Past Psychological History: No Psychological Hx Reported Smoking Status: Never smoker Past Alcohol Use History: None Reported Past Drug Use History: None Reported Additional History: She has been since 1977 and cares for her handicapped a son who has cerebral palsy. She also watches her 5-year-old granddaughter. - Past Family History Sister(s) Family Medical History: Cancer Additional Family Medical History / Comment(s): BREAST cancer. Another sister had ovarian cancer. Brother(s) Family Medical History: Cancer Additional Family Medical History / Comment(s): BRAIN AND LUNG CA Daughter(s) Family Medical History: Cancer Additional Family Medical History / Comment(s): CERVICAL Mother Family Medical History: Cancer, CVA/TIA, Diabetes Mellitus, Hyperlipidemia, Hypertension Additional Family Medical History / Comment(s): Bone cancer, mental disability Father Additional Family Medical History / Comment(s): Father was murdered at 42 yrs old Medications and Allergies Home Medications Medication Instructions Recorded Confirmed Type Losartan Potassium 100 mg PO DAILY 11/27/13 07/02/23 History Simvastatin [Zocor] 20 mg PO DAILY 02/12/17 07/02/23 History Insulin Glargine,Hum.rec.anlog 0 unit SQ HS 08/20/17 07/02/23 History [Basaglar Kwikpen U-100] Insulin Lispro [humaLOG Kwikpen] 100 unit SQ AC-BID 08/20/17 07/02/23 History Cyanocobalamin [Vitamin B-12] 1 tab PO DAILY 07/02/23 07/02/23 History HYDROcodone/APAP 5-325MG [[place] 1 tab PO DAILY 07/02/23 07/02/23 History 5-325] Allergies Allergy/AdvReac Type Severity Reaction Status Date / Time venom-honey bee Allergy Severe Dyspnea Verified 07/02/23 12:52 [bee venom (honey bee)] venom-wasp [Wasp Venom] Allergy Severe Dyspnea Verified 07/02/23 12:52 MITA Inhibitors Allergy Unknown Dyspnea Verified 07/02/23 12:52 lactose Allergy Unknown Nausea & Verified 07/02/23 12:52 Vomiting tramadol Allergy Hallucinati Verified 07/02/23 12:52 ons seafood Allergy Unknown Rash/Hives Uncoded 07/02/23 12:52 Exam Vital Signs Temp Pulse Resp BP Pulse Ox 07/02/23 12:58 97.9 F 92 17 162/90 97 Intake and Output 07/01/23 07/02/23 07/02/23 22:59 06:59 14:59 Other: Weight 91.172 kg Height 4 feet 10 inches, weight 201 pounds, BMI 42.0. This is a well-developed well-nourished heavyset female who is alert and oriented times 3 in no acute distress. HEENT: Within normal limits. NECK: Supple without mass or thyromegaly. CHEST AND LUNGS: Clear to auscultation. HEART: Regular rate and rhythm. BREASTS: Are without mass or discharge. AXILLARY EXAM: Negative for adenopathy. BACK: Negative for CVA tenderness. ABDOMEN: Soft, obese, nontender, without palpable masses. PELVIC EXAM: Normal external genitalia with mild atrophy. Cervix and vagina appear normal with mild atrophy. There is no unusual discharge. There is no evidence of prolapse. There is no cervical motion tenderness. The uterus is midposition, nongravid size and is mildly tender. She states that she does have intermittent pelvic pains that feels like she has to have a bowel movement. There are no palpable adnexal masses or tenderness. RECTAL EXAM: Rectovaginal exam is negative for mass or tenderness and is negative for occult blood. EXTREMITIES: Nontender. IMPRESSION: 1. 63-year-old menopausal female with mild pelvic tenderness in the area of the uterus. 2. Family history of ovarian cancer in her sister. 3. Elevated blood pressure with history of chronic hypertension. PLAN: 1. Pap smear cotest was performed. Her 2016 Pap smear showed ASCUS with negative high-risk HPV testing. The 2018 Pap smear was negative. 2. Self breast awareness was discussed with the patient. We have also d iscussed symptoms associated with inflammatory breast cancer. 3. Screening mammogram was done on 06/26/2023 and was benign. She will repeat this after 1 year. 4. Osteoporosis prevention was discussed. I have stressed the importance of adequate calcium, vitamin D and regular exercise. Recommended amounts of calcium and vitamin D were also discussed. I have recommended bone density testing and the order slip was given to the patient for this. 5. Because of her sister's history of ovarian cancer I have recommended yearly pelvic ultrasounds. The order slip was given to the patient for this. 6. We've discussed her elevated blood pressure. I have recommended that she check her own blood pressure on a regular basis and follow up with her PCP for blood pressure elevations. 7. She was advised to return in one year for her annual well woman exam.
== END ==
LOC: WWCWWP 12:34
PROVIDERS: ATTEND Obstetrics & Gynecology
DX: I10 Essential (primary) hypertension (principal); R10.2 Pelvic and perineal pain; E11.9 Type 2 diabetes mellitus without complications; K21.9 Gastro-esophageal reflux disease without esophagitis; M51.9 Unspecified thoracic, thoracolumbar and lumbosacral intervertebral disc disorder; M54.9 Dorsalgia, unspecified; M19.90 Unspecified osteoarthritis, unspecified site; Z87.19 Personal history of other diseases of the digestive system; Z79.4 Long term (current) use of insulin; Z80.3 Family history of malignant neoplasm of breast; Z80.41 Family history of malignant neoplasm of ovary; Z88.5 Allergy status to narcotic agent; Z91.030 Bee allergy status; Z88.8 Allergy status to other drugs, medicaments and biological substances; Z91.013 Allergy to seafood; Z91.018 Allergy to other foods; Z78.0 Asymptomatic menopausal state; Z79.899 Other long term (current) drug therapy

== ENCOUNTER → 2023-08-07 | Outpatient (CLI) | payer OTHER ==
--- NOTE | 2023-08-07 11:55 | US ---
EXAMINATION TYPE: US pelvis complete transvag DATE OF EXAM: 08/07/2023 COMPARISON: 05/15/2016 CLINICAL INDICATION: Female, 63 years old with history of Z80.41 OVARIAN CA; Family hx of ovarian can cer. Ablation 7 years ago. A4. TECHNIQUE: Transvaginal (TV) and Transabdominal (TA) . Transabdominal sonographic images of the pel vis were acquired. Transvaginal sonographic images were medically necessary to better assess the fol lowing anatomy. Date of LMP: No longer cycling EXAM MEASUREMENTS: Uterus: 6.8 x 3.2 x 3.8 cm Endometrial Stripe: obliterated Right Ovary: unable to visualize Left Ovary: unable to visualize cm Severely limited due to overlying bowel 1. Uterus: Anteverted unable to clearly visualize. There is hyperechoic material seen within. 2. Endometrium: unable to evaluate due to postsurgical change is within normal limits with thin hype rechoic material possibly representing calcification. 3. Right Ovary: unable to visualize due to overlying bowel 4. Left Ovary: unable to visualize due to overlying bowel 5. Bilateral Adnexa: obscured by bowel 6. Posterior cul-de-sac: WNL IMPRESSION: 1. No evidence for acute process. 2. Endometrium postsurgical changes. No suspicious masses.
--- NOTE | 2023-08-07 12:56 | BD ---
EXAMINATION TYPE: Axial Bone Density DATE OF EXAM: 08/07/2023 CLINICAL HISTORY: 63 years old Female. ICD-10 CODE: Z78.0 post menopausal Height: 57.5 Weight: 191 FRAX RISK QUESTIONS: Family History (Parent hip fracture): no History of Fracture in Adulthood: no Secondary Osteoporosis: no Rheumatoid Arthritis: yes RISK FACTORS HISTORY OF: Surgery to Wrist (right/left): yes When: 2009 MEDICATIONS: Thyroid Medications: no Osteoporosis Medications: no EXAM MEASUREMENTS: Bone mineral densitometry was performed using the [employer] System. Bone mineral density as measured about the Lumbar spine is: ----- L1-L4(G/cm2): 1.005 T Score Values are as follows: ----- L1: -1.5 ----- L2: -1.6 ----- L3: -1.3 ----- L4: -1.6 ----- L1-L4: -1.5 Z Score Values are as follows: ----- L1: -0.9 ----- L2: -1.0 ----- L3: -0.7 ----- L4: -1.0 ----- L1-L4: -0.9 Bone mineral density baseline Bone mineral density about the R hip (g/cm2): 0.876 Bone mineral density about the L hip (g/cm2): 0.913 T Score values are as follows: -----R Neck: -0.8 -----L Neck: -0.7 -----R Total: -1.0 -----L Total: -0.8 Z Score values are as follows: -----R Neck: 0.0 -----L Neck: 0.2 -----R Total: -0.6 -----L Total: -0.3 Bone mineral density baseline FRAX%s: The graph provided illustrates a 4.5% chance for a major osteoporotic fx and a 0.2% chance fo r the hips probability for fx in 10 years time. IMPRESSION: Osteopenia (T Score between -2.5 and -1). There is slightly increased risk of fracture and the patient may be considered for treatment. Re-Screen 2-5 years. NOTE: T-SCORE=SD OF THE YOUNG ADULT MEAN.
== END | disposition home or self-care (01) ==
LOC: RADUSWWP 10:13
PROVIDERS: ATTEND Obstetrics & Gynecology
DX: M85.89 Other specified disorders of bone density and structure, multiple sites (principal); R10.2 Pelvic and perineal pain; Z80.41 Family history of malignant neoplasm of ovary; Z78.0 Asymptomatic menopausal state; Z98.890 Other specified postprocedural states
CPT/HCPCS: 76830; 76856; 77080

== ENCOUNTER 2024-11-28 15:57 | Emergency (ER) | payer SELFPAY ==
[2024-11-28 16:09] LABS: Glucose,Whole Blood 224 mg/dL (70-110)
[2024-11-28 16:10] VITALS: TEMP 97.9
--- NOTE | 2024-11-28 16:28 | ED ---
General Adult HPI - General Chief complaint: Nausea/Vomiting/Diarrhea Stated complaint: diabetes uncontrolled Time Seen by Provider: 11/28/24 16:11 Source: patient, family, RN notes reviewed Mode of arrival: wheelchair Limitations: no limitations - History of Present Illness Initial comments: This is a 64-year-old female with history including IDDM, hypertension and GERD presenting with son for numerous symptoms since 0900 this morning. Son states patient has been experiencing nausea/vomiting, diarrhea, lethargy and difficulty breathing. States patient has been "blacking out", also mentioning chronic pain in her legs with known history of neuropathy. Also endorses concern for blood glucose levels. Patient states vomit "taste like insulin". Patient denies dizziness, diaphoresis, chest pain, abdominal pain, dysuria, hematuria, emesis, hematochezia, melena. Onset/Timin -: hour(s) Time: 09:00 Location: lower extremity Consistency: constant Associated Symptoms: nausea/vomiting, shortness of breath - Related Data Home Medications Medication Instructions Recorded Confirmed Losartan Potassium 100 mg PO DAILY 11/27/13 07/02/23 Simvastatin [Zocor] 20 mg PO DAILY 02/12/17 07/02/23 Insulin Glargine,Hum.rec.anlog 0 unit SQ HS 08/20/17 07/02/23 [Basaglar Kwikpen U-100] Insulin Lispro [humaLOG Kwikpen] 100 unit SQ AC-BID 08/20/17 07/02/23 Cyanocobalamin [Vitamin B-12] 1 tab PO DAILY 07/02/23 07/02/23 HYDROcodone/APAP 5-325MG [[place] 1 tab PO DAILY 07/02/23 07/02/23 5-325] Previous Rx's Medication Instructions Recorded Promethazine [Phenergan] 25 mg PO Q6HR #12 tablet 11/28/24 Allergies Allergy/AdvReac Type Severity Reaction Status Date / Time venom-honey bee Allergy Severe Dyspnea Verified 11/28/24 16:11 [bee venom (honey bee)] venom-wasp [Wasp Venom] Allergy Severe Dyspnea Verified 11/28/24 16:11 MITA Inhibitors Allergy Unknown Dyspnea Verified 11/28/24 16:11 lactose Allergy Unknown Nausea & Verified 11/28/24 16:11 Vomiting tramadol Allergy Hallucinati Verified 11/28/24 16:11 ons seafood Allergy Unknown Rash/Hives Uncoded 07/02/23 12:52 Review of Systems ROS Statement: Those systems with pertinent positive or pertinent negative responses have been documented in the HPI. ROS Other: All systems not noted in ROS Statement are negative. Past Medical History Past Medical History: Diabetes Mellitus, GERD/Reflux, Hypertension Additional Past Medical History / Comment(s): Type 2 diabetes requiring insulin. HX OF DIVERTICULITIS,DEGENERATIVE JOINT DISEASE. Arthritis. PAST SURGICAL SPECIALIST HISTORY: She has no history of STDs. History of Any Multi-Drug Resistant Organisms: None Reported Past Surgical History: Section, Orthopedic Surgery, Uterine Ablation Additional Past Surgical History / Comment(s): X2,COLONOSCOPY X2 last one 2017(next after 5 years).,CHARLEY CARPAL TUNNEL,TRIGGER FINGER SURGERY X2. Endo metrial ablation in 2013. Past Anesthesia/Blood Transfusion Reactions: Previous Problems w/ Anesthesia, Motion Sickness Additional Past Anesthesia/Blood Transfusion Reaction / Comment(s): PT STATES SHE WAS COMATOSE FOR 5 DAYS AFTER . Past Psychological History: No Psychological Hx Reported Smoking Status: Never smoker Past Alcohol Use History: None Reported Past Drug Use History: None Reported - Past Family History Sister(s) Family Medical History: Cancer Additional Family Medical History / Comment(s): BREAST cancer. Another sister had ovarian cancer. Brother(s) Family Medical History: Cancer Additional Family Medical History / Comment(s): BRAIN AND LUNG CA Daughter(s) Family Medical History: Cancer Additional Family Medical History / Comment(s): CERVICAL Mother Family Medical History: Cancer, CVA/TIA, Diabetes Mellitus, Hyperlipidemia, Hypertension Additional Family Medical History / Comment(s): Bone cancer, mental disability Father Additional Family Medical History / Comment(s): Father was murdered at 42 yrs old General Exam Limitations: no limitations General appearance: alert, in distress (Patient is writhing in bed and vomiting into emesis bag), obese Head exam: Present: atraumatic, normocephalic, normal inspection Eye exam: Present: normal appearance, PERRL, EOMI. Absent: scleral icterus, conjunctival injection, periorbital swelling ENT exam: Present: normal exam, mucous membranes dry Neck exam: Present: normal inspection. Absent: tenderness, meningismus, lymphad enopathy Respiratory exam: Present: normal lung sounds bilaterally. Absent: respiratory distress, wheezes, rales, rhonchi, stridor, accessory muscle use, decreased breath sounds, prolonged expiratory Cardiovascular Exam: Present: regular rate, normal rhythm, normal heart sounds. Absent: systolic murmur, diastolic murmur, rubs, gallop, clicks GI/Abdominal exam: Present: soft, tenderness (Positive epigastric and RUQ TTP w ithout guarding. Negative Redd sign), normal bowel sounds, other (Negative McBurney point, Rovsing sign). Absent: distended, guarding, rebound, rigid, mass, pulsatile mass, hernia Extremities exam: Present: normal inspection, full ROM, normal capillary refill, other (Distal BLE neurovascular and motor function intact. Posterior tibialis pulse +2 bilaterally. Patient moving legs frequently, appearing restless). Absent: tenderness, pedal edema, joint swelling, calf tenderness Back exam: Present: normal inspection Neurological exam: Present: alert, oriented X3, CN II-XII intact Psychiatric exam: Present: normal affect, normal mood Skin exam: Present: warm, dry, intact, normal color. Absent: rash Course Vital Signs 11/28/24 11/28/24 11/28/24 16:08 19:16 20:42 Temperature 97.9 F Pulse Rate 118 H 101 H 99 Respiratory 18 22 20 Rate Blood Pressure 195/89 177/109 161/74 O2 Sat by Pulse 100 97 98 Oximetry Medical Decision Making - Medical Decision Making Was pt. sent in by a medical professional or institution (, PA, MANAGER DOCUMENT CONTROL, urgent care, hospital, or detention...) When possible be specific @ -[No] Did you speak to anyone other than the patient for history (EMS, parent, family, police, friend...)? What history was obtained from this source @ -Son provided majority of HPI Did you review nursing and triage notes (agree or disagree)? Why? @ -[I reviewed and agree with nursing and triage notes] Were old charts reviewed (outside hosp., previous admission, EMS record, old EKG, old radiological studies, urgent care reports/EKG's, detention records)? Report findings @ -[No old charts were reviewed] Differential Diagnosis (chest pain, altered mental status, abdominal pain women, abdominal pain men, vaginal bleeding, weakness, fever, dyspnea, syncope, headache, dizziness, GI bleed, back pain, seizure, CVA, palpatations, mental health, musculoskeletal)? @ -Differential Abdominal Pain Women: Appendicitis, Cholecystitis, diverticulosis, ischemic bowel, pancreatitis, hepatitis, UTI, gastroenteritis, AAA, incarcerated hernia, bowel obstruction, constipation, inflammatory bowel, hepatitis, peptic ulcer disease, splenic in farction, perforated viscus, vulvitis, ovarian torsion, PID, kidney stone, placenta abruption, this is not meant to be an all-inclusive list EKG interpreted by me (3pts min.). @ -Sinus rhythm with LAD and without ST deviation and T wave inversion. Ventricular rate 95 bpm, KULWINDER 154 ms, QRS 78 ms, QTc 335 ms. X-rays interpreted by me (1pt min.). @ -[None done] CT interpreted by me (1pt min.). @ -[None done] U/S interpreted by me (1pt. min.). @ -[None done] What testing was considered but not performed or refused? (CT, X-rays, U/S, labs)? Why? @ -[None] What meds were considered but not given or refused? Why? @ -[None] Did you discuss the management of the patient with other professionals (pro fessionals i.e. , PA, MANAGER DOCUMENT CONTROL, lab, RT, psych nurse, secondary social studies teacher, teacher hearing impaired, teacher, security control room officer, immigration case worker)? Give summary @ -[No] Was smoking cessation discussed for >3mins.? @ -[No] Was critical care preformed (if so, how long)? @ -[No] Were there social determinants of health that impacted care today? How? (Homelessness, low income, unemployed, alcoholism, drug addiction, transportation, low edu. Level, literacy, decrease access to med. care, skilled nursing, rehab)? @ -[No] Was there de-escalation of care discussed even if they declined (Discuss DNR or withdrawal of care, Hospice)? DNR status @ -[No] What co-morbidities impacted this encounter? (DM, HTN, Smoking, COPD, CAD, Cancer, CVA, ARF, Chemo, Hep., AIDS, mental health diagnosis, sleep apnea, morbid obesity)? @ -[None] Was patient admitted / discharged? Hospital course, mention meds given and route, prescriptions, significant lab abnormalities, going to OR and other pertinent info. @ -[hospital course] Undiagnosed new problem with uncertain prognosis? @ -[No] Drug Therapy requiring intensive monitoring for toxicity (Heparin, Nitro, Insulin, Cardizem)? @ -[No] Were any procedures done? @ -[No] Diagnosis/symptom? @ -[default] Acute, or Chronic, or Acute on Chronic? @ -Acute Uncomplicated (without systemic symptoms) or Complicated (systemic symptoms)? @ -Complicated Side effects of treatment? @ -[No] Exacerbation, Progression, or Severe Exacerbation? @ -[No] Poses a threat to life or bodily function? How? (Chest pain, USA, PA, pneumonia, PE, COPD, DKA, ARF, appy, cholecystitis, CVA, Diverticulitis, Homicidal, Suicidal, threat to staff... and all critical care pts) @ -[No] - Lab Data Result diagrams: 11/28/24 16:40 11/28/24 16:40 Lab Results 11/28/24 11/28/24 11/28/24 Range/Units 16:08 16:40 16:40 WBC 7.10 (4.50-10.00) 10*3/uL RBC 4.92 (4.10-5.20) 10*6/uL Hgb 14.5 (12.0-15.0) g/dL Hct 42.7 (37.2-46.3) % MCV 86.8 (80.0-97.0) fL MCH 29.5 (27.0-32.0) pg MCHC 34.0 (32.0-37.0) g/dL Plt Count 392 (140-440) 10*3/uL MPV 9.1 L (9.5-12.2) fL Immature Gran % (Auto) 0.3 % Neutrophils % 62.1 % Lymphocytes % 27.5 % Monocytes % 7.5 % Eosinophils % 1.8 % Basophils % 0.8 % Immature Gran # 0.02 (0.00-0.04) 10*3/uL Neutrophils # 4.41 (1.80-7.70) 10*3/uL Lymphocytes # 1.95 (0.90-5.00) 10*3/uL Monocytes # 0.53 (0.20-1.00) 10*3/uL Eosinophils # 0.13 (0.04-0.35) 10*3/uL Basophils # 0.06 (0.00-0.10) 10*3/uL PT 10.4 (10.0-12.5) sec INR 0.9 (<1.2) APTT 22.5 (22.0-30.0) sec VBG pH (7.31-7.41) VBG pCO2 (37-51) mmHg VBG HCO3 (24-28) mmol/L Sodium (137-145) mmol/L Potassium (3.5-5.1) mmol/L Chloride (98-107) mmol/L Carbon Dioxide (22-30) mmol/L Anion Gap mmol/L BUN (7-17) mg/dL Creatinine (0.52-1.04) mg/dL Est GFR (CKD-EPI)AfAm (>60 ml/min/1.73 sqM) Est GFR (CKD-EPI)NonAf (>60 ml/min/1.73 sqM) Glucose (74-99) mg/dL POC Glucose (mg/dL) 224 H (70-110) mg/dL POC Glu Duct Maker ID Rich Lizt[place] Plasma Lactic Acid Wesley (0.7-2.0) mmol/L Calcium (8.4-10.2) mg/dL Phosphorus (2.5-4.5) mg/dL Magnesium (1.6-2.3) mg/dL Total Bilirubin (0.2-1.3) mg/dL AST (14-36) U/L ALT (4-34) U/L Alkaline Phosphatase (38-126) U/L Troponin I (0.000-0.034) ng/mL Total Protein (6.3-8.2) g/dL Albumin (3.5-5.0) g/dL Lipase (23-300) U/L Urine Color Urine Appearance (Clear) Urine pH (5.0-8.0) Ur Specific [place] (1.001-1.035) Urine Protein (Negative) Urine Glucose (UA) (Negative) Urine Ketones (Negative) Urine Blood (Negative) Urine Nitrite (Negative) Urine Bilirubin (Negative) Urine Urobilinogen (<2.0) mg/dL Ur Leukocyte Esterase (Negative) Urine RBC (0-5) /hpf Urine WBC (0-5) /hpf Urine Mucus (None) /hpf Acetone, Qual (Negative) Influenza Type A (PCR) (Not Detectd) Influenza Type B (PCR) (Not Detectd) RSV (PCR) (Not Detectd) SARS-CoV-2 (PCR) (Not Detectd) 11/28/24 11/28/24 11/28/24 Range/Units 16:40 16:40 16:40 WBC (4.50-10.00) 10*3/uL RBC (4.10-5.20) 10*6/uL Hgb (12.0-15.0) g/dL Hct (37.2-46.3) % MCV (80.0-97.0) fL MCH (27.0-32.0) pg MCHC (32.0-37.0) g/dL Plt Count (140-440) 10*3/uL MPV (9.5-12.2) fL Immature Gran % (Auto) % Neutrophils % % Lymphocytes % % Monocytes % % Eosinophils % % Basophils % % Immature Gran # (0.00-0.04) 10*3/uL Neutrophils # (1.80-7.70) 10*3/uL Lymphocytes # (0.90-5.00) 10*3/uL Monocytes # (0.20-1.00) 10*3/uL Eosinophils # (0.04-0.35) 10*3/uL Basophils # (0.00-0.10) 10*3/uL PT (10.0-12.5) sec INR (<1.2) APTT (22.0-30.0) sec VBG pH (7.31-7.41) VBG pCO2 (37-51) mmHg VBG HCO3 (24-28) mmol/L Sodium 136 L (137-145) mmol/L Potassium 4.0 (3.5-5.1) mmol/L Chloride 100 (98-107) mmol/L Carbon Dioxide 23 (22-30) mmol/L Anion Gap 13 mmol/L BUN 13 (7-17) mg/dL Creatinine 0.64 (0.52-1.04) mg/dL Est GFR (CKD-EPI)AfAm >90 (>60 ml/min/1.73 sqM) Est GFR (CKD-EPI)NonAf >90 (>60 ml/min/1.73 sqM) Glucose 212 H (74-99) mg/dL POC Glucose (mg/dL) (70-110) mg/dL POC Glu Duct Maker ID Plasma Lactic Acid Wesley 1.9 (0.7-2.0) mmol/L Calcium 10.0 (8.4-10.2) mg/dL Phosphorus (2.5-4.5) mg/dL Magnesium (1.6-2.3) mg/dL Total Bilirubin 0.5 (0.2-1.3) mg/dL AST 24 (14-36) U/L ALT 19 (4-34) U/L Alkaline Phosphatase 99 (38-126) U/L Troponin I <0.012 (0.000-0.034) ng/mL Total Protein 8.5 H (6.3-8.2) g/dL Albumin 4.5 (3.5-5.0) g/dL Lipase 107 (23-300) U/L Urine Color Urine Appearance (Clear) Urine pH (5.0-8.0) Ur Specific [place] (1.001-1.035) Urine Protein (Negative) Urine Glucose (UA) (Negative) Urine Ketones (Negative) Urine Blood (Negative) Urine Nitrite (Negative) Urine Bilirubin (Negative) Urine Urobilinogen (<2.0) mg/dL Ur Leukocyte Esterase (Negative) Urine RBC (0-5) /hpf Urine WBC (0-5) /hpf Urine Mucus (None) /hpf Acetone, Qual Negative (Negative) Influenza Type A (PCR) (Not Detectd) Influenza Type B (PCR) (Not Detectd) RSV (PCR) (Not Detectd) SARS-CoV-2 (PCR) (Not Detectd) 11/28/24 11/28/24 11/28/24 Range/Units 16:40 16:40 16:40 WBC (4.50-10.00) 10*3/uL RBC (4.10-5.20) 10*6/uL Hgb (12.0-15.0) g/dL Hct (37.2-46.3) % MCV (80.0-97.0) fL MCH (27.0-32.0) pg MCHC (32.0-37.0) g/dL Plt Count (140-440) 10*3/uL MPV (9.5-12.2) fL Immature Gran % (Auto) % Neutrophils % % Lymphocytes % % Monocytes % % Eosinophils % % Basophils % % Immature Gran # (0.00-0.04) 10*3/uL Neutrophils # (1.80-7.70) 10*3/uL Lymphocytes # (0.90-5.00) 10*3/uL Monocytes # (0.20-1.00) 10*3/uL Eosinophils # (0.04-0.35) 10*3/uL Basophils # (0.00-0.10) 10*3/uL PT (10.0-12.5) sec INR (<1.2) APTT (22.0-30.0) sec VBG pH 7.49 H (7.31-7.41) VBG pCO2 31 L (37-51) mmHg VBG HCO3 24 (24-28) mmol/L Sodium (137-145) mmol/L Potassium (3.5-5.1) mmol/L Chloride (98-107) mmol/L Carbon Dioxide (22-30) mmol/L Anion Gap mmol/L BUN (7-17) mg/dL Creatinine (0.52-1.04) mg/dL Est GFR (CKD-EPI)AfAm (>60 ml/min/1.73 sqM) Est GFR (CKD-EPI)NonAf (>60 ml/min/1.73 sqM) Glucose (74-99) mg/dL POC Glucose (mg/dL) (70-110) mg/dL POC Glu Duct Maker ID Plasma Lactic Acid Wesley (0.7-2.0) mmol/L Calcium (8.4-10.2) mg/dL Phosphorus 3.2 (2.5-4.5) mg/dL Magnesium 1.8 (1.6-2.3) mg/dL Total Bilirubin (0.2-1.3) mg/dL AST (14-36) U/L ALT (4-34) U/L Alkaline Phosphatase (38-126) U/L Troponin I (0.000-0.034) ng/mL Total Protein (6.3-8.2) g/dL Albumin (3.5-5.0) g/dL Lipase (23-300) U/L Urine Color Urine Appearance (Clear) Urine pH (5.0-8.0) Ur Specific [place] (1.001-1.035) Urine Protein (Negative) Urine Glucose (UA) (Negative) Urine Ketones (Negative) Urine Blood (Negative) Urine Nitrite (Negative) Urine Bilirubin (Negative) Urine Urobilinogen (<2.0) mg/dL Ur Leukocyte Esterase (Negative) Urine RBC (0-5) /hpf Urine WBC (0-5) /hpf Urine Mucus (None) /hpf Acetone, Qual (Negative) Influenza Type A (PCR) Not Detected (Not Detectd) Influenza Type B (PCR) Not Detected (Not Detectd) RSV (PCR) Not Detected (Not Detectd) SARS-CoV-2 (PCR) Not Detected (Not Detectd) 11/28/24 Range/Units 17:14 WBC (4.50-10.00) 10*3/uL RBC (4.10-5.20) 10*6/uL Hgb (12.0-15.0) g/dL Hct (37.2-46.3) % MCV (80.0-97.0) fL MCH (27.0-32.0) pg MCHC (32.0-37.0) g/dL Plt Count (140-440) 10*3/uL MPV (9.5-12.2) fL Immature Gran % (Auto) % Neutrophils % % Lymphocytes % % Monocytes % % Eosinophils % % Basophils % % Immature Gran # (0.00-0.04) 10*3/uL Neutrophils # (1.80-7.70) 10*3/uL Lymphocytes # (0.90-5.00) 10*3/uL Monocytes # (0.20-1.00) 10*3/uL Eosinophils # (0.04-0.35) 10*3/uL Basophils # (0.00-0.10) 10*3/uL PT (10.0-12.5) sec INR (<1.2) APTT (22.0-30.0) sec VBG pH (7.31-7.41) VBG pCO2 (37-51) mmHg VBG HCO3 (24-28) mmol/L Sodium (137-145) mmol/L Potassium (3.5-5.1) mmol/L Chloride (98-107) mmol/L Carbon Dioxide (22-30) mmol/L Anion Gap mmol/L BUN (7-17) mg/dL Creatinine (0.52-1.04) mg/dL Est GFR (CKD-EPI)AfAm (>60 ml/min/1.73 sqM) Est GFR (CKD-EPI)NonAf (>60 ml/min/1.73 sqM) Glucose (74-99) mg/dL POC Glucose (mg/dL) (70-110) mg/dL POC Glu Duct Maker ID Plasma Lactic Acid Wesley (0.7-2.0) mmol/L Calcium (8.4-10.2) mg/dL Phosphorus (2.5-4.5) mg/dL Magnesium (1.6-2.3) mg/dL Total Bilirubin (0.2-1.3) mg/dL AST (14-36) U/L ALT (4-34) U/L Alkaline Phosphatase (38-126) U/L Troponin I (0.000-0.034) ng/mL Total Protein (6.3-8.2) g/dL Albumin (3.5-5.0) g/dL Lipase (23-300) U/L Urine Color Colorless Urine Appearance Clear (Clear) Urine pH 7.5 (5.0-8.0) Ur Specific [place] 1.015 (1.001-1.035) Urine Protein 1+ H (Negative) Urine Glucose (UA) 1+ H (Negative) Urine Ketones Negative (Negative) Urine Blood Negative (Negative) Urine Nitrite Negative (Negative) Urine Bilirubin Negative (Negative) Urine Urobilinogen <2.0 (<2.0) mg/dL Ur Leukocyte Esterase Negative (Negative) Urine RBC 2 (0-5) /hpf Urine WBC <1 (0-5) /hpf Urine Mucus Rare H (None) /hpf Acetone, Qual (Negative) Influenza Type A (PCR) (Not Detectd) Influenza Type B (PCR) (Not Detectd) RSV (PCR) (Not Detectd) SARS-CoV-2 (PCR) (Not Detectd) Disposition Clinical Impression: Gastroenteritis, Leg pain, bilateral Disposition: HOME SELF-CARE Condition: Fair Instructions (If sedation given, give patient instructions): Acute Nausea and Vomiting (ED), Acute Diarrhea (ED) Additional Instructions: Bread, rice, applesauce, tea, toast. Increase intake of water and Gatorade/Pedialyte. Yesenia tea/hilda for nausea. Return to ER if experiencing worsening nausea/vomiting, diarrhea, blood in vomit/stool, dizziness, loss of consciousness. Prescriptions: Promethazine [Phenergan] 25 mg PO Q6HR #12 tablet Is patient prescribed a controlled substance at d/c from ED?: No Referrals: None,Stated [Primary Care Provider] - 1-2 days Noé Marie [STAFF PHYSICIAN] - 1-2 days Kushal Agudelo MD [STAFF PHYSICIAN] - 1-2 days Time of Disposition: 20:15
[2024-11-28] MEDS: ONDANSETRON 4 MG/2 ML VIAL IVP STA ×2 (16:35→18:36)
[2024-11-28] MEDS: SODIUM CHLORIDE 0.9% 1,000 ML IV STA (16:35)
[2024-11-28] MEDS: PANTOPRAZOLE 40 MG/10 ML VIAL IVP STA (16:36)
[2024-11-28] MEDS: FAMOTIDINE 20 MG/2 ML VIAL IV STA (16:36)
[2024-11-28 16:45] LABS: Basophils # (A) 0.06 10*3/uL (0.00-0.10); Basophils % (A) 0.8 %; Eosinophils # (A) 0.13 10*3/uL (0.04-0.35); Eosinophils % (A) 1.8 %; HCT 42.7 % (37.2-46.3); HGB 14.5 g/dL (12.0-15.0); Lymphocytes # (A) 1.95 10*3/uL (0.90-5.00); Lymphocytes % (A) 27.5 %; MCH 29.5 pg (27.0-32.0); MCHC 34.0 g/dL (32.0-37.0); MCV 86.8 fL (80.0-97.0); Monocytes # (A) 0.53 10*3/uL (0.20-1.00); Monocytes % (A) 7.5 %; Neutrophils # (A) 4.41 10*3/uL (1.80-7.70); Neutrophils % (A) 62.1 %; Platelet Count 392 10*3/uL (140-440); RBC 4.92 10*6/uL (4.10-5.20); RDW 12.6 % (11.5-14.5); WBC 7.10 10*3/uL (4.50-10.00)
[2024-11-28 16:46] LABS: VBG HCO3 24.0 mmol/L (24-28); VBG PCO2 31.0 mmHg (37-51); VBG PH 7.49 (7.31-7.41)
[2024-11-28 16:59] LABS: INR 0.9 (<1.2); Partial Thromboplastin Time 22.5 sec (22.0-30.0); Prothrombin Time 10.4 sec (10.0-12.5)
[2024-11-28 17:01] LABS: ALT 19 U/L (4-34); AST 24 U/L (14-36); African American GFR (CKD) >90 (>60 ml/min/1.73 sqM); Albumin 4.5 g/dL (3.5-5.0); Alkaline Phosphatase 99 U/L (38-126); Anion Gap 13 mmol/L; Blood Urea Nitrogen 13 mg/dL (7-17); Calcium 10.0 mg/dL (8.4-10.2); Carbon Dioxide 23 mmol/L (22-30); Chloride 100 mmol/L (98-107); Glucose 212 mg/dL (74-99); Lipase 107 U/L (23-300); Non-African American GFR(CKD) >90 (>60 ml/min/1.73 sqM); Potassium 4.0 mmol/L (3.5-5.1); Sodium 136 mmol/L (137-145); Total Protein 8.5 g/dL (6.3-8.2)
--- NOTE | 2024-11-28 17:03 | XR ---
EXAMINATION TYPE: XR chest 2V DATE OF EXAM: 11/28/2024 4:49 PM COMPARISON: Chest radiographs from 09/08/2017 TECHNIQUE: XR chest 2V Frontal and lateral views of the chest. CLINICAL INDICATION:Female, 64 years old with history of Lethargic; FINDINGS: Lungs/Pleura: There is no evidence of pleural effusion, focal consolidation, or pneumothorax. Pulmonary vascularity: Unremarkable. Heart/mediastinum: Cardiomediastinal silhouette is unremarkable. Musculoskeletal: No acute osseous pathology. DISH of the thoracic spine. IMPRESSION: No acute cardiopulmonary disease/process. [facility], , 11/28/2024 5:01 PM
[2024-11-28 17:29] LABS: Bilirubin,Urine Negative (Negative); Blood,Urine Negative (Negative); Color,Urine Colorless; Glucose,Urine (UA) 1+ (Negative); Ketones,Urine Negative (Negative); Leukocyte Esterase,Urine Negative (Negative); Mucus,Urine Rare /hpf; Nitrite,Urine Negative (Negative); PH, Urine 7.5 (5.0-8.0); Protein,Urine 1+ (Negative); RBC,Urine 2 /hpf (0-5); Specific Gravity,Urine 1.015 (1.001-1.035); Urobilinogen,Urine <2.0 mg/dL (<2.0); WBC,Urine <1 /hpf (0-5)
[2024-11-28] MEDS: MORPHINE SULFATE 4 MG/ML SYRINGE IVP STA (17:51)
[2024-11-28] MEDS: METOCLOPRAMIDE 5 MG/ML 2 ML VIAL IVP STA (17:51)
[2024-11-28] MEDS: ACETAMINOPHEN TAB 500 MG TAB PO STA (18:37)
[2024-11-28] MEDS: KETOROLAC 15 MG/ML 1 ML VIAL IVP STA (18:41)
[2024-11-28 18:47] LABS: Magnesium 1.8 mg/dL (1.6-2.3)
[2024-11-28] MEDS: SODIUM CHLORIDE 0.9% 500 ML 500 ML IV STA (19:24)
[2024-11-28] MEDS: PROMETHAZINE 25 MG TAB PO STA (19:34)
--- NOTE | 2024-11-28 20:10 | US ---
EXAMINATION TYPE: US gallbladder DATE OF EXAM: 11/28/2024 COMPARISON: CT abdomen 09/08/2017, CT abdomen and pelvis 02/12/2017 CLINICAL INDICATION: Female, 64 years old with history of Nausea/vomiting, RUQ TTP; N/V. Pt blood sug ar was also elevated. TECHNIQUE: Grayscale and color Doppler imaging of the right upper quadrant was performed. FINDINGS: EXAM MEASUREMENTS: Liver Length: 14.3 cm Gallbladder Wall: 0.22 cm CBD: 0.43 cm Right Kidney: 11.1 x 5.1 x 4.1 cm REVENUE CYCLE MANAGER NOTES: Limited exam due to body habitus and pt uncooperation. Pancreas: parts seen appear wnl Liver: wnl Gallbladder: small echogenic foci seen in body of GB Evidence for sonographic Redd's sign: No CBD: wnl Right Kidney: wnl Visualized portions of the pancreas are unremarkable. Liver appears unremarkable. Small gallstones ar e identified within layering within the gallbladder. No wall thickening or surrounding fluid. Negativ e sonographic Redd's sign. Common bile duct is within normal limits. Right kidney demonstrates no h ydronephrosis, shadowing calculus or solid mass. IMPRESSION: 1. No ultrasound evidence for acute process. 2. Cholelithiasis without evidence for acute cholecystitis. [facility], , 11/28/2024 8:07 PM
[2024-11-28 20:23] LABS: RSV Not Detected (Not Detectd)
[2024-11-28 20:43] VITALS: BP 161/74; PULSE 99; RESP 20
[2024-11-28] MEDS: Acetaminophen-Codeine 300-30mg TAB PO STA (20:56)
[2024-11-28] MEDS: ONDANSETRON 4 MG ODT STARTER PACK 2 TAB BTL PO STA (20:56)
[2024-11-28] MEDS: ACET/COD 300 MG/30 MG STARTER PACK TAB BTL PO STA (20:57)
== END 2024-11-28 21:04 | disposition home or self-care (01) ==
LOC: EC 15:57
DX: K52.9 Noninfective gastroenteritis and colitis, unspecified (principal); M79.604 Pain in right leg; M79.605 Pain in left leg; I10 Essential (primary) hypertension; Z79.4 Long term (current) use of insulin; Z88.5 Allergy status to narcotic agent; Z91.011 Allergy to milk products; Z91.013 Allergy to seafood; Z91.030 Bee allergy status
CPT/HCPCS: 36415; 93005; 80053; 82803; 82009; 83605; 83690; 83735; 84100; 84484; 85025; 85610; 85730; 81001; 87636; 71046; 76705; 99285; 96374; 96375; 96376; 96361; J2270; J2765; J2405; S0119; J2470; J1308